=== PATIENT | female | born 1955 | race Asian ===

== ENCOUNTER 2023-10-18 11:32 | Emergency (ER) | payer OTHER ==
[2023-10-18 11:43] VITALS: BP 123/69; PULSE 74; RESP 17; TEMP 98.4; BMI 21.6
[2023-10-18] MEDS ORDERED: IBUPROFEN 400 MG TABLET (FP) PO ONE (12:18)
[2023-10-18] MEDS ORDERED: ACETAMINOPHEN 325 MG TABLET (FP) ONE (12:18)
[2023-10-18] MEDS: IBUPROFEN 600 MG TABLET (FP) PO ONE (12:20)
[2023-10-18] MEDS: ACETAMINOPHEN 325 MG TABLET (FP) PO ONE (12:20)
== END 2023-10-18 15:40 | disposition home or self-care (01) ==
LOC: JER 11:32 → JERFT 11:32 → JER 15:40
DX: S83.91XA Sprain of unspecified site of right knee, initial encounter (principal); M25.561 Pain in right knee; W22.8XXA Striking against or struck by other objects, initial encounter
CPT/HCPCS: 73564-TC-RT-FY; 73700-TC-RT; 99284-25